=== PATIENT | male | born 1965 | race Caucasian/White ===

== ENCOUNTER 2016-11-01 08:55 | Emergency (ER) | payer OTHER ==
[2016-11-01 09:06] VITALS: BMI 31.1
--- NOTE | 2016-11-01 09:28 | PDOC ---
History of Present Illness - General Chief Complaint: Pain, Acute Stated Complaint: ABD PAIN Time Seen by Provider: 11/01/16 09:21 History Source: Patient Exam Limitations: No Limitations - History of Present Illness Initial Comments: 11/01/16 09:27 CHIEF COMPLAINT: Abdominal pain HISTORY OF PRESENT ILLNESS: This is a 51 year old male with a history of HTN who presents complaining of several month of intermittent abdominal pain, acutely worse today. He notes that the pain occurs about one hour after eating and is associated with a sensation of abdominal distention. The pain radiates to the bilateral flanks. He denies nausea/vomiting and fever/chills. He has constipation for several days at a time. He traveled to [place] recently, returning in July. He notes that while in [place] about 8 months ago, he had similar pain which was associated with rectal bleeding. He was given an unknown medication by a doctor and the symptoms resolved. Vital signs on arrival are unremarkable. REVIEW OF SYSTEMS: GENERAL/CONSTITUTIONAL: No fever or chills. No weakness. No weight change. HEAD, EYES, EARS, NOSE AND THROAT: No change in vision. No ear pain or discharge. No sore throat. CARDIOVASCULAR: No chest pain or palpitations. RESPIRATORY: No cough, wheezing, or shortness of breath. GASTROINTESTINAL: See HPI. GENITOURINARY: No dysuria, frequency, or change in urination. MUSCULOSKELETAL: No joint or muscle swelling or pain. No neck or back pain. SKIN: No rash or easy bruising. NEUROLOGIC: No headache, vertigo, loss of consciousness, or loss of sensation. PSYCHIATRIC: No depression or anxiety. ENDOCRINE: No increased thirst. No abnormal weight change. HEMATOLOGIC/LYMPHATIC: No anemia, easy bleeding, or history of blood clots. ALLERGIC/IMMUNOLOGIC: No hives or skin allergy. No latex allergy. PHYSICAL EXAM: GENERAL: The patient is awake, alert, and fully oriented, in no acute distress. HEAD: Normal with no signs of trauma. ENT: Pupils equal, round and reactive to light, extraocular movements intact, sclera anicteric, conjunctiva clear. Neck supple. LUNGS: Clear to auscultation bilaterally. Normal excursion. No respiratory distress or use of accessory muscles. CV: RRR, S1/S2, no MRG. Cap refill < 2 sec. ABDOMEN: Soft, non-distended, tender to palpation epigastrium > RUQ > lower abdomen. EXTREMITIES: Normal range of motion, no edema. NEUROLOGICAL: Normal speech, normal gait. CN II-XII grossly intact. PSYCH: Normal mood, normal affect. SKIN: Warm, dry, normal turgor, no rashes or lesions noted. Past History - Past Medical History Allergies/Adverse Reactions: Allergies Allergy/AdvReac Type Severity Reaction Status Date / Time No Known Allergies Allergy Verified 11/01/16 09:02 Home Medications: Ambulatory Orders Captopril 25 mg PO DAILY 11/01/16 Other medical history: denies - Immunization History Immunization Up to Date: Yes - Psycho/Social/Smoking Cessation Hx Suicidal Ideation: No Smoking History: Never smoked Hx Alcohol Use: No Drug/Substance Use Hx: No Substance Use Type: None *Physical Exam - Vital Signs Last Vital Signs Temp Pulse Resp BP Pulse Ox 98.1 F 62 18 137/86 100 11/01/16 09:02 11/01/16 09:02 11/01/16 09:02 11/01/16 09:02 11/01/16 09:25 ED Treatment Course - LABORATORY CBC & Chemistry Diagram: 11/01/16 09:40 11/01/16 09:40 Medical Decision Making - Medical Decision Making 11/01/16 10:24 A/P: 51 year old male with [id number] abdominal pain, worse with eating, associated with constipation. Had similar symptoms about 8 months ago associated with rectal bleeding, resolved with utilization of unknown medication prescribed in [place] (?diverticulitis). Without associated chest pain , shortness of breath, nausea, or diaphoresis, ACS is lower on the differential. 1. EKG 2. Cardiac + abdominal labs 3. CTAP with PO/IV contrast 4. Patient declines analgesia 11/01/16 10:59 Labs reviewed and are unremarkable. 11/01/16 13:11 CT scan notable for diffuse fatty infiltration of the liver and prostatic enlargement. No evidence of diverticulitis or other acute pathology. Patient re-examined and is feeling well. Re-enforced GI followup and need for further workup, possibly including endoscopy/colonoscopy. Will rx PPI, advise bland diet. *DC/Admit/Observation/Transfer Diagnosis at time of Disposition: Abdominal pain Qualifiers: Abdominal location: epigastric Qualified Code(s): R10.13 - Epigastric pain - Discharge Dispostion Disposition: HOME Admit: No - Referrals Referrals: Alek Hsu MD [Staff Physician] - - Patient Instructions Printed Discharge Instructions: DI for Gastritis, [place] Diet Additional Instructions: -Take Nexium as prescribed. -Follow up with the [facility] GI clinic for further evaluation; you may need endoscopy/colonoscopy. -Eat a bland diet (instructions enclosed) until you are feeling better. -Return here for rectal bleeding, vomiting/unable to keep down fluids, or any other concerning symptoms. [facility] Address: [address] [place] [address]
[2016-11-01 10:18] LABS: URINE APPEARANCE CLEAR; URINE BILIRUBIN NEGATIVE (NEGATIVE); URINE BLOOD NEGATIVE (NEGATIVE); URINE COLOR LTYELLOW; URINE GLUCOSE (UA) NEGATIVE (NEGATIVE); URINE KETONE NEGATIVE (NEGATIVE); URINE LEUK ESTERASE NEGATIVE (NEGATIVE); URINE NITRITE NEGATIVE (NEGATIVE); URINE PROTEIN NEGATIVE (NEGATIVE); URINE UROBILINOGEN NEGATIVE E.U./dl (0.2-1.0)
[2016-11-01 10:22] LABS: BASOPHIL 0.3 % (0-2.0); MCHC 33.6 g/dl (32.0-35.9); MEAN CELL VOLUME 86.2 fl (80-96); MEAN PLT VOLUME 9.2 fl (7.5-11.1); NEUTROPHILS 50.2 % (42.8-82.8); PLATELET COUNT 213 K/MM3 (134-434); RDW 13.1 % (11.9-15.9); WHITE BLOOD COUNT 7.1 K/mm3 (4.0-10.0)
[2016-11-01 10:36] LABS: ALBUMIN 3.7 g/dl (3.4-5.0); ANION GAP 8 (8-16); BILIRUBIN,TOTAL 0.5 mg/dL (0.2-1.0); CALCIUM 8.9 mg/dL (8.5-10.1); CO2 30 mmol/L (21-32); CREATININE 0.8 mg/dL (0.7-1.3); GLUCOSE,RANDOM 105 mg/dL (74-106); SGOT/AST 12 U/L (15-37); SGPT/ALT 30 U/L (12-78)
[2016-11-01 10:38] LABS: ALK PHOS 72 U/L (45-117); TROPONIN I < 0.02 ng/ml (0.00-0.05)
[2016-11-01 13:25] VITALS: BP 112/60; PULSE 82; TEMP 98.3
--- NOTE | 2016-11-01 13:53 | EKG ---
Test Reason : Blood Pressure : / mmHG Vent. Rate : 053 BPM Atrial Rate : 053 BPM P-R Int : 152 ms QRS Dur : 082 ms QT Int : 386 ms P-R-T Axes : 009 015 032 degrees QTc Int : 362 ms SINUS BRADYCARDIA OTHERWISE NORMAL ECG NO PREVIOUS ECGS AVAILABLE Confirmed by MANUEL GARDINER MD ([id number]) on 11/01/2016 1:52:35 PM Referred By: Confirmed By:MANUEL GARDINER MD
== END 2016-11-01 13:33 | disposition home or self-care (01) ==
LOC: JER 08:55
DX: R10.13 Epigastric pain (principal); I10 Essential (primary) hypertension
CPT/HCPCS: 36415; 74177-TC; 80053; 81003; 82550; 83690; 84484; 85025; 93005; 93010; 99284-25; Q9967

== ENCOUNTER 2016-12-28 10:23 | Day surgery (SDC) | payer OTHER ==
[2016-12-27 13:52] VITALS: BMI 31.1
[2016-12-28 12:17] VITALS: TEMP 97.9
[2016-12-28 13:00] VITALS: BP 122/80; PULSE 50
--- NOTE | 2016-12-29 14:43 | PATH ---
Surgical Pathology Report Patient Name: SAILAJA ESTEBAN [facility]. Rec. #: [id number] /Age/Gender: 1965 (Age: 51) / M Account: [id number] Location: [facility]-ENDOSCOPY Taken: 12/28/2016 Received: 12/28/2016 Reported: 12/29/2016 Physicians: Jose Enrique Alba D.O. Specimen(s) Received BX ANGULARIS/BODY Clinical History Dyspepsia Gastritis Final Diagnosis ANGULARIS/BODY, BIOPSY: MODERATE CHRONIC ACTIVE GASTRITIS. IMMUNOSTAIN SHOWS A MODERATE NUMBER OF H. PYLORI ORGANISMS. Electronically Signed Loren Mitchell M.D. Gross Description Received in formalin, labeled "biopsy angularis/body" are 2 rice, irregular portions of soft tissue averaging 0.2 cm. in greatest dimension. The specimens are submitted in toto in one cassette. /12/28/201612/28/2016
== END 2016-12-28 12:58 | disposition home or self-care (01) ==
LOC: JASU-ENDO 10:23
PROVIDERS: ATTEND Internal Medicine Gastroenterology
PROC: 0DB68ZX Excision of Stomach, Via Natural or Artificial Opening Endoscopic, Diagnostic (ICD-10-PCS; principal; 2016-12-28 11:00)
DX: K29.70 Gastritis, unspecified, without bleeding (principal)
CPT/HCPCS: 88305-TC; 88342-TC

== ENCOUNTER 2017-01-04 09:47 | Day surgery (SDC) | payer OTHER ==
[2017-01-04] MEDS ORDERED: PROPOFOL 20 ML ONE ×3 (10:11)
[2017-01-04 10:24] VITALS: BMI 31.9
[2017-01-04 10:56] VITALS: TEMP 97.5
[2017-01-04 11:52] VITALS: BP 117/73; PULSE 53
== END 2017-01-04 11:51 | disposition home or self-care (01) ==
LOC: JASU-ENDO 09:47
PROVIDERS: ATTEND Internal Medicine Gastroenterology
PROC: 0DJD8ZZ Inspection of Lower Intestinal Tract, Via Natural or Artificial Opening Endoscopic (ICD-10-PCS; principal; 2017-01-04 10:30)
DX: Z12.11 Encounter for screening for malignant neoplasm of colon (principal); K64.8 Other hemorrhoids

== ENCOUNTER 2022-06-13 09:08 | Emergency (ER) | payer SELFPAY ==
[2022-06-13 09:23] VITALS: BP 142/87; PULSE 59; RESP 18; TEMP 97.9; BMI 28.8
[2022-06-13 12:05] LABS: BASO % 0.4 % (0-2.0); EOS % 2.7 % (0-4.5); HEMATOCRIT 43.4 % (35.4-49); HEMOGLOBIN 14.8 GM/dL (11.7-16.9); LYMPH % 34.2 % (8-40); MCH 29.6 pg (25.7-33.7); MCHC 34.1 g/dl (32.0-35.9); MEAN CELL VOLUME 86.8 fl (80-96); MEAN PLT VOLUME 8.2 fl (7.5-11.1); NEUT % 55.7 % (42.8-82.8); PLATELET COUNT 232 10^3/uL (134-434); RDW 12.9 % (11.9-15.9); WHITE BLOOD COUNT 7.2 K/mm3 (4.0-10.0)
[2022-06-13 12:08] LABS: EPI CELLS 9 /uL (0-25.1); HYALINE CASTS 22 /uL (0-3.1); PH,URINE 6.5 (5.0-8.0); URINE APPEARANCE TURBID; URINE BILIRUBIN 1+ (NEGATIVE); URINE COLOR RED; URINE GLUCOSE (UA) NEGATIVE (NEGATIVE); URINE KETONE NEGATIVE (NEGATIVE); URINE LEUK ESTERASE 2+ (NEGATIVE); URINE NITRITE POSITIVE (NEGATIVE); URINE PROTEIN 3+ (NEGATIVE); URINE RBC 37758 /uL (0-23.9); URINE UROBILINOGEN 0.2 mg/dL (0.2-1.0); URINE WBC 38 /uL (0-25.8)
[2022-06-13 12:12] LABS: INR 1.11 (0.83-1.09); PROTHROMBIN TIME (PATIENT) 12.8 SEC (9.7-13.0)
[2022-06-13 12:14] LABS: ACTIVATED PTT 38.4 SECONDS (25.2-36.5)
[2022-06-13 12:24] LABS: ALBUMIN 3.6 g/dl (3.4-5.0)
[2022-06-13 12:25] LABS: BLOOD UREA NITROGEN 24.4 mg/dL (7-18)
[2022-06-13 12:28] LABS: CREATININE 0.7 mg/dL (0.55-1.3)
[2022-06-13 12:29] LABS: BILIRUBIN,TOTAL 0.5 mg/dL (0.2-1); TOT PROT 7.1 g/dl (6.4-8.2)
[2022-06-13] MEDS ORDERED: SULFAMETHOXAZOLE/TRIMETHOPRIM 800MG/160MG D.S. TABLET PO ONE (12:53)
[2022-06-13] MEDS ORDERED: SULFAMETHOXAZOLE/TRIMETHOPRIM 800MG/160MG D.S. TABLET ONE (12:57)
== END 2022-06-13 13:03 | disposition home or self-care (01) ==
LOC: JER 09:08
DX: R31.9 Hematuria, unspecified (principal); N30.00 Acute cystitis without hematuria
CPT/HCPCS: 36415; 80053; 81003; 85025; 85610; 85730; 99284-25

== ENCOUNTER 2022-10-29 15:31 | Emergency (ER) | payer OTHER ==
[2022-10-29 15:34] VITALS: RESP 18; TEMP 98.2; BMI 24.3
[2022-10-29] MEDS ORDERED: FAMOTIDINE 20 MG/50 ML IVPB 20 MG/50 ML MG IVPB ONE ×2 (16:27→16:33)
[2022-10-29] MEDS ORDERED: SODIUM CHLORIDE 0.9% 500 ML INFUS.BAG IV ONE (16:27)
[2022-10-29 16:57] LABS: BASO % 0.5 % (0-2.0); EOS % 5.2 % (0-4.5); HEMOGLOBIN 14.6 GM/dL (11.7-16.9); LYMPH % 39.9 % (8-40); MCH 29.2 pg (25.7-33.7); MCHC 34.7 g/dl (32.0-35.9); MEAN CELL VOLUME 84.2 fl (80-96); MEAN PLT VOLUME 8.3 fl (7.5-11.1); MONO % 6.2 % (3.8-10.2); NEUT % 48.2 % (42.8-82.8); PLATELET COUNT 257 10^3/uL (134-434); RDW 12.6 % (11.9-15.9); WHITE BLOOD COUNT 6.9 K/mm3 (4.0-10.0)
[2022-10-29 17:14] LABS: CALCIUM 8.9 mg/dL (8.5-10.1)
[2022-10-29 17:15] LABS: ALBUMIN 3.7 g/dl (3.4-5.0); BLOOD UREA NITROGEN 14.4 mg/dL (7-18)
[2022-10-29 17:18] LABS: CREATININE 0.7 mg/dL (0.55-1.3)
[2022-10-29 17:19] LABS: BILIRUBIN,TOTAL 0.5 mg/dL (0.2-1); TOT PROT 7.2 g/dl (6.4-8.2)
[2022-10-29 20:34] VITALS: BP 139/86; PULSE 75
[2022-10-29 21:35] LABS: URINE APPEARANCE CLEAR; URINE COLOR YELLOW
[2022-10-29 21:36] LABS: URINE BILIRUBIN NEGATIVE (NEGATIVE); URINE GLUCOSE (UA) NEGATIVE (NEGATIVE); URINE KETONE NEGATIVE (NEGATIVE); URINE LEUK ESTERASE NEGATIVE (NEGATIVE); URINE NITRITE NEGATIVE (NEGATIVE); URINE PROTEIN NEGATIVE (NEGATIVE); URINE UROBILINOGEN 0.2 mg/dL (0.2-1.0)
== END 2022-10-29 20:47 | disposition home or self-care (01) ==
LOC: JER 15:31
PROC: 3E033GC Introduction of Other Therapeutic Substance into Peripheral Vein, Percutaneous Approach (ICD-10-PCS; principal; 2022-10-29)
DX: R10.10 Upper abdominal pain, unspecified (principal)
CPT/HCPCS: 36415; 71046-TC-FY; 71275-TC; 74174-TC; 80053; 81003; 83690; 84484; 85025; 87086; 93005; 93010; 99285-25; Q9967

== ENCOUNTER 2024-02-19 17:48 | Emergency (ER) | payer OTHER ==
[2024-02-19 17:57] VITALS: BP 124/91; PULSE 65; RESP 17; TEMP 98.2; BMI 27.3
[2024-02-19] MEDS ORDERED: IBUPROFEN 600 MG TABLET (FP) PO ONE (18:54)
[2024-02-19] MEDS: IBUPROFEN 600 MG TABLET (FP) PO ONE (19:10)
== END 2024-02-19 20:46 | disposition home or self-care (01) ==
LOC: JERFT 17:48
DX: M25.562 Pain in left knee (principal); M25.462 Effusion, left knee; W01.198A Fall on same level from slipping, tripping and stumbling with subsequent striking against other object, initial encounter
CPT/HCPCS: 73562-TC-LT-FY; 99283-25

== ENCOUNTER 2024-09-08 04:07 | Day surgery (SDC) | payer OTHER ==
[2024-09-05 15:16] VITALS: BMI 30.4
[2024-09-08] MEDS ORDERED: PROPOFOL 20 ML ONE ×2 (10:50→11:16)
[2024-09-08] MEDS ORDERED: MIDAZOLAM HCL 2 MG/2 ML SINGLE DOSE VIAL ONE (10:51)
[2024-09-08] MEDS ORDERED: ONDANSETRON 4 MG/2 ML VIAL ONE (11:18)
[2024-09-08] MEDS ORDERED: DEXAMETHASONE SOD PHOSPHATE 4 MG/1 ML VIAL ONE (11:18)
[2024-09-08] MEDS ORDERED: ceFAZolin SODIUM 1 GM VIAL ONE (11:20)
[2024-09-08] MEDS: ceFAZolin SODIUM 1 GM VIAL IVPB ONE (11:20)
[2024-09-08] MEDS ORDERED: oxyCODONE HCL 5 MG TABLET PO PRN (11:39)
[2024-09-08] MEDS ORDERED: ONDANSETRON 4 MG/2 ML VIAL IVPUSH PRN (11:39)
[2024-09-08] MEDS: LACTATED RINGERS SOLUTION 1,000 ML IV SCH (12:45)
[2024-09-08 13:48] VITALS: BP 131/71; PULSE 58; RESP 18; TEMP 97.7
[2024-09-12 20:08] LABS: CA OXALATE MONOHYDR. 100 % (.); SIZE 13x7 mm (.); WEIGHT 32 mg (.)
== END 2024-09-08 13:45 | disposition home or self-care (01) ==
LOC: JASU-SURG 04:07
PROVIDERS: ATTEND Urology
PROC: 0TCB8ZZ Extirpation of Matter from Bladder, Via Natural or Artificial Opening Endoscopic (ICD-10-PCS; principal; 2024-09-08 10:00)
DX: N21.0 Calculus in bladder (principal)
CPT/HCPCS: 36415; 82360; 88300-TC; 94760